=== PATIENT | female | born 1965 | race Caucasian/White ===

== ENCOUNTER → 2017-04-07 | Outpatient (CLI) | payer BC ==
--- NOTE | 2017-04-07 14:37 | US ---
EXAMINATION TYPE: US chest DATE OF EXAM: 04/07/2017 COMPARISON: NONE CLINICAL HISTORY: R09.1 Pleurisy. Right pleural effusion EXAM MEASUREMENTS: Right Pleural Effusion fluid pocket: 1.6 cm Right skin to fluid thickness: 3.2 cm Right side marked for possible thoracentesis outside the dept. Pulmonologists are able to review the images in the patient?s EMR. IMPRESSIONS: Pleural effusion is noted.
== END ==
LOC: RADUSWWP 13:51
PROVIDERS: ATTEND Internal Medicine
DX: J90 Pleural effusion, not elsewhere classified (principal)
CPT/HCPCS: 76604